=== PATIENT | male | born 1965 | race Two or more races ===

== ENCOUNTER 2016-04-25 14:12 | Emergency (ER) | payer MEDICAID ==
[2016-04-25] MEDS ORDERED: HYDROCODONE/ACETAMINOPHEN 5/325MG TABLET ONE (14:54)
--- NOTE | 2016-04-25 15:38 | RAD ---
LEFT ANKLE 3 VIEWS HISTORY: Left ankle pain, ground-level fall. COMPARISONS: None. TECHNIQUE: Frontal, lateral, and oblique views of the left ankle. ALIGNMENT: Grossly unremarkable. Ankle mortise intact. FRACTURE: No displaced acute fracture. DEGENERATIVE CHANGE: Tibiotalar osteophyte formation. SOFT TISSUES: Anterolateral soft tissue swelling. CALCANEUS: Posterior enthesophyte formation. RADIOOPAQUE FOREIGN BODY: None. 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 No displaced acute fracture. Posterior calcaneal enthesophyte formation.
--- NOTE | 2016-04-25 15:40 | RAD ---
LEFT KNEE 4 VIEWS HISTORY: Left knee pain status post fall. Frontal, lateral, and bilateral oblique views of the left knee. COMPARISON: None. ALIGNMENT: Grossly unremarkable.. JOINT SPACES: Preserved. JOINT EFFUSION: None identified. CALCIFICATIONS: No abnormal calcifications noted. FRACTURE: Nondisplaced proximal fibular fracture. This appears mildly comminuted. IMPRESSION: Nondisplaced mildly comminuted proximal left fibular fracture. No gross malalignment or joint effusion at the knee.
== END 2016-04-25 17:55 | disposition home or self-care (01) ==
LOC: ED 14:12
DX: S82.402A Unspecified fracture of shaft of left fibula, initial encounter for closed fracture (principal); E11.9 Type 2 diabetes mellitus without complications; I10 Essential (primary) hypertension; Z79.84 Long term (current) use of oral hypoglycemic drugs; Z86.73 Personal history of transient ischemic attack (TIA), and cerebral infarction without residual deficits; W10.9XXA Fall (on) (from) unspecified stairs and steps, initial encounter; Y92.007 Garden or yard of unspecified non-institutional (private) residence as the place of occurrence of the external cause; Y93.H9 Activity, other involving exterior property and land maintenance, building and construction
CPT/HCPCS: 73610; 73564; 99283 ×2; 29515; A9270